=== PATIENT | male | born 1985 | race Two or more races ===

== ENCOUNTER 2023-04-16 11:45 | Emergency (ER) | payer OTHER ==
[~2023-04-16] VITALS: Ht 170.2 cm; Wt 74.8 kg
[2023-04-16] MEDS ORDERED: CRESTOR5 MG PO (12:59)
[2023-04-16 14:24] LABS: HEMATOCRIT 47.7 % (39.0-48.0); HEMOGLOBIN 15.7 g/dL (13-16.00); MEAN CELL VOLUME 83.5 fL (80.0-100.00); MEAN CORPUSCULAR HEMOGLOBIN 27.5 pg (27.00-32.0); PLATELET COUNT 219 K/uL (150-450); RED BLOOD COUNT 5.71 M/uL (4.00-6.00)
[2023-04-16 14:45] LABS: CALCIUM 9.4 mg/dL (8.5-10.1); CREATININE SERUM 1.12 mg/dL (0.70-1.30); GFR 73.37; POTASSIUM 3.77 mEq/L (3.5-5.1)
[2023-04-16 15:02] LABS: URINE APPEARANCE Clear; URINE BILIRRUBIN Negative (NEGATIVE); URINE BLOOD NHT; URINE COLOR Yellow; URINE GLUCOSE Negative (NEGATIVE); URINE LEUKOCYTE Negative; URINE NITRATE Negative; URINE PROTEIN Trace (NEGATIVE); URINE UROBILINOGEN 0.2 E.U./dl
[2023-04-16 15:06] LABS: URINE RBC 106.4 uL (0.0-20.8)
[2023-04-16 15:15] LABS: URINE BACTERIA 3.7 uL (0.0-1933); URINE EPITHELIAL CELLS 0.7 uL (0.0-38.8); URINE WBC 1.2 uL (0.0-23.2)
== END 2023-04-16 16:10 | disposition home or self-care (01) ==
LOC: ER 11:45
PROVIDERS: General Practice
DX: T50.Z95A Adverse effect of other vaccines and biological substances, initial encounter (principal)
CPT/HCPCS: 36415; 96372; 99282; J1885